=== PATIENT | male | born 1990 | race Two or more races ===

== ENCOUNTER → 2019-06-19 | Emergency (ER) | payer OTHER ==
[~2019-06-19] VITALS: Ht 170.2 cm; Wt 115.7 kg
[~2019-06-19] MED LIST: KETO10TA2 PO
== END | disposition home or self-care (01) ==
LOC: ER 01:08
DX: S93.491A Sprain of other ligament of right ankle, initial encounter (principal); S93.691A Other sprain of right foot, initial encounter; X50.0XXA Overexertion from strenuous movement or load, initial encounter; Y93.01 Activity, walking, marching and hiking; Y92.018 Other place in single-family (private) house as the place of occurrence of the external cause; Y99.8 Other external cause status

== ENCOUNTER 2021-03-23 19:32 | Emergency (ER) | payer OTHER ==
[~2021-03-23] VITALS: Ht 167.6 cm; Wt 117.9 kg
== END 2021-03-23 22:28 | disposition home or self-care (01) ==
LOC: ER 19:32
DX: R07.89 Other chest pain (principal); I10 Essential (primary) hypertension